=== PATIENT | female | born 1940 ===

== ENCOUNTER 2017-01-26 17:23 | Emergency (ER) | payer OTHER ==
[2017-01-26 17:38] VITALS: BP 137/78; PULSE 78; RESP 20; TEMP 97.7; O2SAT 98
--- NOTE | 2017-01-26 18:51 | ED PDOC ---
HPI: Abdomen Time Seen by Provider: 01/26/17 17:47 Chief Complaint (Nursing): Abdominal Pain Chief Complaint (Provider): abd pain History Per: Patient History/Exam Limitations: no limitations Onset/Duration Of Symptoms: Days (3) Current Symptoms Are (Timing): Still Present Severity: Moderate Location Of Pain/Discomfort: RUQ (radiating to back) Quality Of Discomfort: Aching Associated Symptoms: Nausea, Constipation (chronic). denies: Fever, Chills, Vomiting, Loss Of Appetite, Urinary Symptoms Exacerbating Factors: Food Alleviating Factors: None Past Medical History Reviewed: Historical Data, Nursing Documentation, Vital Signs Vital Signs: Last Vital Signs Temp 97.7 F 01/26/17 17:35 Pulse 78 01/26/17 17:35 Resp 20 01/26/17 17:35 BP 137/78 01/26/17 17:35 Pulse Ox 98 01/26/17 22:26 - Medical History PMH: Diabetes, HTN, Hypothyroidism - Surgical History Other surgeries: Hysterectomy - Family History Family History: States: Hypertension - Social History Current smoker - smoking cessation education provided: No Ex-Smoker (has not smoked in the last 12 months): No - Home Medications Home Medications: Ambulatory Orders Medication Instructions Recorded Polyethylene Glycol 3350 [Miralax] 17 gm PO DAILY PRN #1 bottle 05/21/16 Ibuprofen [Motrin Tab] 600 mg PO Q8 PRN #30 tab 01/26/17 Insulin Detemir [Levemir] 8 units SC ACHS 15 Days 01/26/17 - Allergies Allergies/Adverse Reactions: Allergies Allergy/AdvReac Type Severity Reaction Status Date / Time No Known Allergies Allergy Verified 01/26/17 17:35 Review of Systems ROS Statement: Except As Marked, All Systems Reviewed And Found Negative (and as per HPI) Respiratory: Positive for: Shortness of Breath. Negative for: Cough Gastrointestinal: Positive for: Nausea, Abdominal Pain, Constipation. Negative for: Vomiting, Diarrhea, Melena, Hematochezia, Hematemesis Genitourinary Female: Positive for: Frequency. Negative for: Dysuria Musculoskeletal: Positive for: Back Pain Physical Exam - Reviewed Nursing Documentation Reviewed: Yes Vital Signs Reviewed: Yes - Physical Exam Appears: Positive for: Non-toxic, In Acute Distress Head Exam: Positive for: ATRAUMATIC, NORMOCEPHALIC Skin: Positive for: Warm, Dry Eye Exam: Positive for: EOMI, PERRL ENT: Negative for: Pharyngeal Erythema, Tonsillar Exudate Neck: Positive for: Painless ROM, Supple Cardiovascular/Chest: Positive for: Regular Rate, Rhythm, Chest Non Tender. Negative for: Murmur Respiratory: Positive for: Normal Breath Sounds. Negative for: Wheezing, Respiratory Distress Gastrointestinal/Abdominal: Positive for: Bowel Sounds, Soft, Tenderness (RUQ). Negative for: Mass, Distended, Guarding, Rebound, Asicites Back: Positive for: Normal Inspection. Negative for: Vertebral Tenderness Extremity: Positive for: Normal ROM. Negative for: Pedal Edema Lymphatic: Negative for: Adenopathy Neurologic/Psych: Positive for: Alert. Negative for: Motor/Sensory Deficits - Laboratory Results Result Diagrams: 01/26/17 19:20 01/26/17 19:20 - ECG O2 Sat by Pulse Oximetry: 98 - Progress ED Course And Treament: EXAM: US Abdomen Complete CLINICAL HISTORY: 76 years old, female; Pain; Other: Ruq , rt flank pain; Additional info: Ruq pain r flank pain TECHNIQUE: Real-time ultrasound of the abdomen (complete) with image documentation. EXAM DATE/TIME: 01/26/2017 5:53 PM COMPARISON: There are no prior studies for comparison. FINDINGS: Liver: Liver is unremarkable. There is hepatopedal flow in the main portal vein. Gallbladder: Gallbladder is distended with no stones, sludge or wall thickening. Common bile duct: Common bile duct measures 4.8 mm in diameter Pancreas: Pancreas is partially obscured by bowel gas. The left portion is unremarkable. Kidneys: Kidneys are unremarkable. Corticomedullary differentiation is maintained. There is no pelvocaliectasis. Spleen: Spleen is unremarkable. Aorta: Visualized portions of the aorta and inferior vena cava are unremarkable. Inferior vena cava: See above. IMPRESSION: Slightly limited evaluation of the pancreas, study is otherwise unremarkable Patient was not tender over the gallbladder Thank you for allowing us to participate in the care of your patient. Dictated and Authenticated by: Jenniffer Ko MD 01/26/2017 9:45 PM Eastern Time ([place] & [place]) Re-evaluation Time: 21:00 Condition: Re-examined, Improved Disposition - Clinical Impression Clinical Impression: Dehydration, Abdominal pain Counseled Patient/Family Regarding: Studies Performed, Diagnosis, Need For Followup, Rx Given - Disposition Referrals: [facility] [Outside] - 01/28/17 Disposition: Routine/Home Disposition Time: 22:00 Condition: IMPROVED Prescriptions: Ibuprofen [Motrin Tab] 600 mg PO Q8 PRN #30 tab PRN Reason: Pain, Moderate (4-7) Insulin Detemir [Levemir] 8 units SC ACHS 15 Days Instructions: Dehydration (ED), Flank Pain (ED) Print Language: LUXEMBOURGISH
[2017-01-26 19:30] LABS: BASO # 0.1 K/uL (0.0-0.2); BASO % 1.2 % (0.0-2.0); EOS # 0.6 K/uL (0.0-0.7); HEMATOCRIT 36.8 % (34.0-47.0); LYMPH # 2.6 K/uL (1.0-4.3); LYMPH % 27.5 % (20.0-40.0); MEAN CORPUSCULAR HEMOGLOBIN 28.4 pg (27.0-31.0); MEAN CORPUSCULAR HGB CONC 33.8 g/dL (33.0-37.0); MEAN PLATELET VOLUME 8.4 fl (7.2-11.7); MONO # 0.8 K/uL (0.0-0.8); NEUT # 5.3 K/uL (1.8-7.0); NEUT % 56.3 % (50.0-75.0); RED CELL DISTRIBUTION WIDTH 12.7 % (11.5-14.5); WHITE BLOOD COUNT 9.5 K/uL (4.8-10.8)
[2017-01-26 19:42] LABS: ALB/GLOB RATIO 1.2 (1.0-2.1); ALKALINE PHOSPHATASE 110 U/L (38-126); ALT/SGPT 36 U/L (9-52); AST/SGOT 26 U/L (14-36); BILIRUBIN,TOTAL 0.5 mg/dl (0.2-1.3); BLOOD UREA NITROGEN 27 mg/dl (7-17); CALCIUM 9.6 mg/dL (8.4-10.2); CARBON DIOXIDE 26 mmol/L (22-30); CHLORIDE 92 mmol/L (98-107); GFR AFRICAN-AMERICAN > 60; GLUCOSE,RANDOM 195 mg/dL (65-105); LIPASE 181 U/L (23-300); SODIUM 129 mmol/l (132-148); TOTAL PROTEIN 8.6 G/DL (6.3-8.2)
[2017-01-26 20:20] LABS: PARTIAL THROMBOPLASTIN TIME 28.3 Seconds (25.6-37.1)
--- NOTE | 2017-01-26 21:46 | US ---
EXAM: US Abdomen Complete CLINICAL HISTORY: 76 years old, female; Pain; Other: Ruq , rt flank pain; Additional info: Ruq pain r flank pain TECHNIQUE: Real-time ultrasound of the abdomen (complete) with image documentation. EXAM DATE/TIME: 01/26/2017 5:53 PM COMPARISON: There are no prior studies for comparison. FINDINGS: Liver: Liver is unremarkable. There is hepatopedal flow in the main portal vein. Gallbladder: Gallbladder is distended with no stones, sludge or wall thickening. Common bile duct: Common bile duct measures 4.8 mm in diameter Pancreas: Pancreas is partially obscured by bowel gas. The left portion is unremarkable. Kidneys: Kidneys are unremarkable. Corticomedullary differentiation is maintained. There is no pelvocaliectasis. Spleen: Spleen is unremarkable. Aorta: Visualized portions of the aorta and inferior vena cava are unremarkable. Inferior vena cava: See above. IMPRESSION: Slightly limited evaluation of the pancreas, study is otherwise unremarkable Patient was not tender over the gallbladder
== END 2017-01-26 22:44 | disposition home or self-care (01) ==
LOC: H.ER 17:23
DX: E86.0 Dehydration (principal); R10.11 Right upper quadrant pain; R11.0 Nausea; E03.9 Hypothyroidism, unspecified; E11.9 Type 2 diabetes mellitus without complications; I10 Essential (primary) hypertension; Z79.4 Long term (current) use of insulin; Z87.891 Personal history of nicotine dependence

== ENCOUNTER 2017-05-13 20:22 | Emergency (ER) | payer SELFPAY ==
[2017-05-13 21:21] VITALS: TEMP 97
--- NOTE | 2017-05-13 21:52 | ED PDOC ---
HPI: Back Time Seen by Provider: 05/13/17 21:32 Chief Complaint (Nursing): Back Pain Chief Complaint (Provider): low back pain History Per: Patient, Family History/Exam Limitations: no limitations Onset/Duration Of Symptoms: Days (3) Current Symptoms Are (Timing): Still Present Quality Of Discomfort: "Pain" Exacerbating Factor(s): Turning, Movement Additional History Per: Patient Additional Complaint(s): 76 y/o female presents with low back pain x 3 days. Patient notes pain to have started after bending over to pick something up. Pain worse with movement. Denies numbness/weakness lower extremities, bowel/bladder incontinence, hematuria, dysuria. Pain improved with Tylenol. Past Medical History Reviewed: Historical Data, Nursing Documentation, Vital Signs Vital Signs: Last Vital Signs Temp 97.0 F L 05/13/17 21:18 Pulse 79 05/13/17 21:18 Resp 16 05/13/17 21:18 BP 158/69 H 05/13/17 21:18 Pulse Ox 99 05/13/17 21:18 - Medical History PMH: Diabetes, HTN, Hypothyroidism - Family History Family History: States: Hypertension - Home Medications Home Medications: Ambulatory Orders Medication Instructions Recorded Polyethylene Glycol 3350 [Miralax] 17 gm PO DAILY PRN #1 bottle 05/21/16 Ibuprofen [Motrin Tab] 600 mg PO Q8 PRN #30 tab 01/26/17 Insulin Detemir [Levemir] 8 units SC ACHS 15 Days 01/26/17 Lidocaine 5% [Lidoderm] 1 patch TOP DAILY #5 patch 05/14/17 Naproxen [Naprosyn Tab] 375 mg PO BID PRN #14 tab 05/14/17 - Allergies Allergies/Adverse Reactions: Allergies Allergy/AdvReac Type Severity Reaction Status Date / Time No Known Allergies Allergy Verified 05/13/17 21:17 Review of Systems ROS Statement: Except As Marked, All Systems Reviewed And Found Negative Musculoskeletal: Positive for: Back Pain Physical Exam - Reviewed Nursing Documentation Reviewed: Yes Vital Signs Reviewed: Yes - Physical Exam Appears: Positive for: Well, Non-toxic, No Acute Distress Head Exam: Positive for: ATRAUMATIC, NORMAL INSPECTION, NORMOCEPHALIC Skin: Positive for: Normal Color Eye Exam: Positive for: Normal appearance ENT: Positive for: Normal ENT Inspection Cardiovascular/Chest: Positive for: Regular Rate, Rhythm Respiratory: Positive for: Normal Breath Sounds Gastrointestinal/Abdominal: Positive for: Normal Exam Back: Positive for: Vertebral Tenderness (lspine), Muscle Spasm (b/l lspine paraspinals). Negative for: L CVA Tenderness, R CVA Tenderness Extremity: Positive for: Normal ROM Neurologic/Psych: Positive for: Alert, Oriented - Laboratory Results Result Diagrams: 05/14/17 00:10 05/14/17 00:10 Urine dip results: Positive for: Glucose. Negative for: Leukocyte Esterase, Blood, Nitrate, Ketones - ECG O2 Sat by Pulse Oximetry: 99 - Other Rad ls xray X-Ray: Viewed By Ga X-Ray Interpretation: no acute findings - Progress ED Course And Treament: xray, toradol Patient glucose >400; labs, IV fluids ordered On re-eval, patient states she is feeling better Glucose improved. Patient educated on findings, discharged with rx naproxen, lidoderm. Advised follow up PMD 2-3 days. Return to ED for worsening/concerning symptoms. Disposition - Clinical Impression Clinical Impression: Back pain, Hyperglycemia - Patient ED Disposition Is Patient to be Admitted: No Counseled Patient/Family Regarding: Studies Performed, Diagnosis, Need For Followup, Rx Given - Disposition Disposition: Routine/Home Disposition Time: 01:32 Condition: IMPROVED Prescriptions: Lidocaine 5% [Lidoderm] 1 patch TOP DAILY #5 patch Naproxen [Naprosyn Tab] 375 mg PO BID PRN #14 tab PRN Reason: Pain, Moderate (4-7) Instructions: Acute Low Back Pain (ED), Diabetic Hyperglycemia (ED) Forms: [email or web address] (Kyrgyz) Print Language: CAMBODIAN
[2017-05-13] MEDS ORDERED: Sodium Chloride 0.9% 1,000 ML IV STA (22:56)
[2017-05-14 00:16] LABS: BASO # 0.1 K/uL (0.0-0.2); EOS # 0.8 K/uL (0.0-0.7); EOS % 9.9 % (0.0-4.0); LYMPH # 2.1 K/uL (1.0-4.3); LYMPH % 24.6 % (20.0-40.0); MEAN PLATELET VOLUME 8.9 fl (7.2-11.7); MONO # 0.7 K/uL (0.0-0.8); MONO % 8.5 % (0.0-10.0); NEUT # 4.8 K/uL (1.8-7.0); RED CELL DISTRIBUTION WIDTH 13.4 % (11.5-14.5); WHITE BLOOD COUNT 8.5 K/uL (4.8-10.8)
[2017-05-14 00:23] LABS: BLOOD UREA NITROGEN 27 mg/dl (7-17); CALCIUM 9.6 mg/dL (8.4-10.2); CARBON DIOXIDE 24 mmol/L (22-30); CHLORIDE 98 mmol/L (98-107); GFR AFRICAN-AMERICAN > 60; GLUCOSE,RANDOM 367 mg/dL (65-105); SODIUM 132 mmol/l (132-148)
[2017-05-14 00:25] LABS: POTASSIUM 5.3 MMOL/L (3.6-5.0)
[2017-05-14 01:43] VITALS: BP 143/79; PULSE 78; RESP 18; O2SAT 98
--- NOTE | 2017-05-14 16:27 | RAD ---
PROCEDURE: Radiographs of the Lumbar Spine. HISTORY: injury, low back pain COMPARISON: No prior. FINDINGS: BONES: Normal alignment. No listhesis. No fracture. Diffuse osteopenia may indicate an element of osteoporosis. Clinically correlate. DISC SPACES: Advanced degenerate disease appreciated at L1-2, mild otherwise throughout the remainder of the lumbar spine. OTHER FINDINGS: None. 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 No acute fracture or spondylolisthesis appreciable. Diffuse osteopenia suggests osteoporosis.
== END 2017-05-14 01:45 | disposition home or self-care (01) ==
LOC: H.ER 20:22
DX: M54.5 Low back pain (principal); E11.65 Type 2 diabetes mellitus with hyperglycemia; E03.9 Hypothyroidism, unspecified; I10 Essential (primary) hypertension; Z79.4 Long term (current) use of insulin
CPT/HCPCS: 72100; 80048; 82948; 85025; 96372; 99283; J1885; J7040

== ENCOUNTER 2018-02-14 19:56 | Emergency (ER) | payer MEDICAID, OTHER ==
[2018-02-14 21:44] LABS: BASO # 0.1 K/uL (0.0-0.2); BASO % 0.9 % (0.0-2.0); EOS # 0.8 K/uL (0.0-0.7); EOS % 9.4 % (0.0-4.0); HEMOGLOBIN 12.6 g/dL (12.0-16.0); LYMPH # 2.4 K/uL (1.0-4.3); LYMPH % 27.3 % (20.0-40.0); MEAN CELL VOLUME 85.9 fl (81.0-99.0); MEAN CORPUSCULAR HEMOGLOBIN 29.6 pg (27.0-31.0); MEAN CORPUSCULAR HGB CONC 34.5 g/dL (33.0-37.0); MEAN PLATELET VOLUME 9.7 fl (7.2-11.7); MONO # 0.6 K/uL (0.0-0.8); MONO % 7.3 % (0.0-10.0); NEUT # 4.8 K/uL (1.8-7.0); NEUT % 55.1 % (50.0-75.0); NRBC % 0.1 % (0.0-0.0); RBC 4.25 Mil/uL (3.80-5.20); RED CELL DISTRIBUTION WIDTH 12.9 % (11.5-14.5); WHITE BLOOD COUNT 8.7 K/uL (4.8-10.8)
[2018-02-14 21:53] LABS: ALB/GLOB RATIO 1.2 (1.0-2.1); ALBUMIN 4.4 g/dL (3.5-5.0); ALT/SGPT 38 U/L (9-52); AST/SGOT 32 U/L (14-36); BLOOD UREA NITROGEN 23 mg/dl (7-17); GFR AFRICAN-AMERICAN > 60; GFR NON-AFRICAN AMERICAN 54
[2018-02-14 22:02] LABS: B-TYPE NATRIURETIC PEPTIDE 235 pg/ml (0-900)
[2018-02-14] MEDS ORDERED: Sodium Chloride 0.9% 1,000 ML IV STA ×2 (22:12)
[2018-02-14 22:44] LABS: SQUAMOUS EPITHIAL < 1 /hpf (0-5); URINE BILIRUBIN NEGATIVE (NEGATIVE); URINE BLOOD NEGATIVE (NEGATIVE); URINE CLARITY CLEAR (Clear); URINE COLOR COLORLESS (YELLOW); URINE GLUCOSE (UA) 50 mg/dL (Normal); URINE LEUKOCYTE ESTERASE NEG Leu/uL (Negative); URINE PROTEIN 30 mg/dL (NEGATIVE); URINE UROBILINOGEN 0.2-1.0 mg/dL (0.2-1.0)
--- NOTE | 2018-02-14 22:52 | ED PDOC ---
Lower Extremity Pain/Injury Time Seen by Provider: 02/14/18 20:44 Chief Complaint (Nursing): Lower Extremity Problem/Injury Chief Complaint (Provider): Lower Extremity Problem/Injury History Per: Patient History/Exam Limitations: no limitations Onset/Duration Of Symptoms: Days (x3) Current Symptoms Are (Timing): Still Present Additional Complaint(s): 77 year old female presents to the ED with complaints of bilateral foot and ankle swelling associated with a burning pain onset three days ago. Patient notes that her abdomen also feels swollen, as she states she has not had a normal bowel movement in three days as well. She states she tries to go frequently, but all that comes out are "small hard balls." Otherwise: (-) chest pain, (-) shortness of breath, (-) fever, (-) cough, (-) vomiting, (-) nausea, ( -) diarrhea, (-) urinary symptoms. PMD: none provided Past Medical History Reviewed: Historical Data, Nursing Documentation, Vital Signs Vital Signs: Last Vital Signs Temp 98.2 F 02/14/18 20:18 Pulse 74 02/14/18 20:18 Resp 19 02/14/18 20:18 BP 154/81 H 02/14/18 20:18 Pulse Ox 97 02/14/18 20:18 - Medical History PMH: Diabetes, HTN, Hypothyroidism - Surgical History Surgical History: No Surg Hx - Family History Family History: States: Hypertension - Social History Current smoker - smoking cessation education provided: No Alcohol: None Drugs: Denies - Home Medications Home Medications: Ambulatory Orders Medication Instructions Recorded Polyethylene Glycol 3350 [Miralax] 17 gm PO DAILY PRN #1 bottle 05/21/16 Ibuprofen [Motrin Tab] 600 mg PO Q8 PRN #30 tab 01/26/17 Insulin Detemir [Levemir] 8 units SC ACHS 15 Days vial 01/26/17 Lidocaine 5% [Lidoderm] 1 patch TOP DAILY #5 patch 05/14/17 Naproxen [Naprosyn Tab] 375 mg PO BID PRN #14 tab 05/14/17 Polyethylene Glycol 3350 [Miralax] 17 pow PO DAILY #20 each 02/15/18 - Allergies Allergies/Adverse Reactions: Allergies Allergy/AdvReac Type Severity Reaction Status Date / Time No Known Allergies Allergy Verified 05/13/17 21:17 Review of Systems ROS Statement: Except As Marked, All Systems Reviewed And Found Negative Constitutional: Negative for: Fever Cardiovascular: Negative for: Chest Pain Respiratory: Negative for: Cough, Shortness of Breath Gastrointestinal: Positive for: Constipation ("small hard balls" coming out), Other (abdomen feels swollen). Negative for: Nausea, Vomiting, Diarrhea Genitourinary Female: Negative for: Dysuria, Frequency, Incontinence Musculoskeletal: Positive for: Leg Pain (bilateral ankle and foot swelling associated with burning pain) Physical Exam - Reviewed Nursing Documentation Reviewed: Yes Vital Signs Reviewed: Yes - Physical Exam Comments: GENERAL APPEARANCE: Patient is awake, alert, oriented x 3, in no acute distress. Comfortable. SKIN: Warm, dry; (-) cyanosis. EYES: (-) conjunctival pallor. ENMT: Mucous membranes moist. NECK: (-) tenderness, (-) stiffness, (-) lymphadenopathy, (-) JVD. CHEST AND RESPIRATORY: (-) rash, (-) chest wall tenderness. Lungs: (-) rales , (-) rhonchi, (-) wheezes, (-) rub; breath sounds equal bilaterally. HEART AND CARDIOVASCULAR: (-) irregularity; (-) murmur, (-) gallop, (-) rub. ABDOMEN AND GI: Soft; (-) distention, (-) tenderness, (-) palpable pulsatile mass. RECTAL: (-) fecal impaction, (-) tenderness, (-) hemorrhoids, (-) guaiac. electrical assembly technician Prashanth was present as a etcher printed circuit boards for rectal exam. LOWER EXTREMITIES: (+) venous stasis dermatitis noted to bilaterally lower legs , (-) deformity otherwise; (+) 1+ pitting edema bilaterally, (-) calf tenderness , (+) distal pulses. NEURO AND PSYCH: Mental status as above. Cranial nerves grossly intact; strength symmetric. - Laboratory Results Result Diagrams: 02/14/18 21:40 02/14/18 21:40 - ECG O2 Sat by Pulse Oximetry: 97 (RA) Pulse Ox Interpretation: Normal Medical Decision Making Medical Decision Making: Initial Impression: CHF exacerbation, neuropathy, constipation Time: 21:18 Initial Plan: --EKG --BNP --CMP --CBC with differential --CXR --Obstructive series XR --Sodium chloride 0.9% 1000ml --Urine culture --Urinalysis --US Lower extremities bilateral AXR obstructive series (including 1 view chest) : NAD, +moderate stool/ constipation, as read by PA EKG : NSR at 62 bpm, (-) acute ST changes, as read by PA Labs reviewed : NS 123, BNP wnl, rest of the labs wnl. Considering normal BNP and CXR, US dopplers ordered to r/o DVT. NS bolus and maintenance fluids ordered. US doppler b/l LE : FINDINGS: Right deep veins: Unremarkable. No DVT in the right common femoral, femoral, proximal deep femoral or popliteal veins. The veins demonstrate normal color flow, are normally compressible, with normal phasic flow and/or augmentation response. Right superficial veins: Unremarkable. No thrombus in the visualized right great saphenous vein. Left deep veins: Unremarkable. No DVT in the left common femoral, femoral, proximal deep femoral or popliteal veins. The veins demonstrate normal color flow, are normally compressible, with normal phasic flow and/or augmentation response. Left superficial veins: Unremarkable. No thrombus in the visualized left great saphenous vein. Soft tissues: No acute findings. IMPRESSION: Normal bilateral lower extremity duplex venous ultrasound. Dictated and Authenticated by: Radha Gavin MD 02/14/2018 11:06 PM Eastern Time ([place] & [place]) 0130 After NS bolus VBG ordered. On re-evaluation, patient laying in bed comfortably in no acute distress, denies any headache, dizziness, CP or SOB. On exam, patient remains AAOx3, in no acute distress. Lab results reviewed and discussed with the patient and her daughter. Diagnostic results d/w the patient and daughter in great detail. Diagnosis of hyponatremia, constipation d/w the patient and daughter. Patient's daughter states that the patient does not take any medications for her consitpation. Advised that the patient will be kept for further observation in the ER and to continue giving maintenance fluids. VBG : shows normal lactate and NA 128, which is improving from initial CMP. 0400 Patient resting comfortably, has no other complaints. VSS. Patient and daughter feel comfortable going home. Advised to increase fiber intake. Based on history, exam and diagnostic results, plan will be for outpatient follow up. Patient instructed to follow-up with pmd in 1-2 days without fail. Rx : miralax for constipation. Return to the emergency room at any time for any new or worsening symptoms. Patient states she fully agrees with and understands discharge instructions. States that she agrees with the plan and disposition. Verbalized and repeated discharge instructions and plan. I have given the patient opportunity to ask any additional questions. Scribe Attestation: Documented by Hannah Ruelas, acting as a scribe for Haydee Lowery PA-C. Provider Scribe Attestation: All medical entries made by the Scribe were at my direction and personally dictated by me. I have reviewed the chart and agree that the record accurately reflects my personal performance of the history, physical exam, medical decision making, and the department course for this patient. I have also personally directed, reviewed, and agree with the discharge instructions and disposition. Disposition - Clinical Impression Clinical Impression: Leg edema, DM neuropathies, Hyponatremia, Constipation - Patient ED Disposition Is Patient to be Admitted: No Counseled Patient/Family Regarding: Studies Performed, Diagnosis, Need For Followup - Disposition Disposition: Routine/Home Disposition Time: 05:00 Condition: STABLE Additional Instructions: Thank you for letting us take care of you today. You were treated for leg edema , DM neuropathy, hyponatremia. The emergency medical care you received today was directed at your acute symptoms. Return to the Emergency Department if your symptoms worsen, do not improve, or if you have any other problems. Please contact your doctor in 2 days for re-evaluation and follow up. Bring any paperwork you were given at discharge with you along with any medications you are taking to your follow up visit. Our treatment cannot replace ongoing medical care by a primary care provider (PCP) outside of the emergency department. Thank you for allowing the [facility] team to be part of your care today. Prescriptions: Polyethylene Glycol 3350 [Miralax] 17 pow PO DAILY #20 each Instructions: Diabetic Neuropathy (DC), Hyponatremia, Swelling, Constipation in Adults Forms: [employer] (Kazakh) Print Language: BULGARIAN - PA / INVENTORY TRANSCRIBER / Resident Statement MD/DO has reviewed & agrees with the documentation as recorded.
[2018-02-15 01:37] LABS: VENOUS BLOOD GAS BASE EXCESS -0.2 mmol/L (0.0-2.0); VENOUS BLOOD GAS PCO2 50 mmHg (40-60); VENOUS BLOOD GAS PO2 20 mm/Hg (30-55); VENOUS BLOOD PH 7.33 (7.32-7.43)
[2018-02-15 05:48] VITALS: BP 142/76; PULSE 70; RESP 18; TEMP 98; O2SAT 99
--- NOTE | 2018-02-15 08:00 | RAD ---
PROCEDURE: Radiographs of the chest and abdomen (obstructive series) HISTORY: constipation COMPARISON: No prior. TECHNIQUE: AP radiograph of the chest, with upright and supine radiographs of the abdomen. FINDINGS: CHEST: Lungs: Clear. Cardiovascular: Normal size heart. No pulmonary vascular congestion. Pleura: No pleural fluid. No pneumothorax. Other findings: None. ABDOMEN AND PELVIS: Bowel: Unremarkable bowel gas pattern. No definite evidence of mechanical obstruction. Prominent amount retained fecal material is identified at the ascending colon. Free air: None. Bones: Unremarkable. Other findings: None. IMPRESSION: Unremarkable radiographs of chest and abdomen. No evidence of mechanical bowel obstruction.
--- NOTE | 2018-02-15 08:42 | CARD ---
APPROVED REPORT EKG Measurement Heart [id number] <Conclusion> Normal sinus rhythm Normal ECG
--- NOTE | 2018-02-15 14:46 | US ---
PROCEDURE: Bilateral lower extremity venous duplex Doppler. HISTORY: leg pain/edema, r/o dvt COMPARISON: None available. TECHNIQUE: Bilateral common and superficial femoral, popliteal and posterior tibial veins were evaluated. Flow was assessed with color Doppler, compressibility, assessment of phasic flow and augmentation response. FINDINGS: COMMON FEMORAL VEIN: Right CFV: Unremarkable. Left CFV: Unremarkable. SUPERFICIAL FEMORAL VEIN: Right SFV: Unremarkable. Left SFV: Unremarkable. POPLITEAL VEIN: Right Popliteal: Unremarkable. Left Popliteal: Unremarkable. POSTERIOR TIBIAL VEIN: Right PTV: Unremarkable. Left PTV: Unremarkable. OTHER FINDINGS: None. IMPRESSION: No ultrasound evidence of deep venous thrombosis bilateral lower extremities. Concordant preliminary report from [facility], 02/14/2018.
== END 2018-02-15 05:25 | disposition home or self-care (01) ==
LOC: H.ER 19:56
DX: R60.0 Localized edema (principal); E11.40 Type 2 diabetes mellitus with diabetic neuropathy, unspecified; E87.1 Hypo-osmolality and hyponatremia; E03.9 Hypothyroidism, unspecified; I11.0 Hypertensive heart disease with heart failure; I50.9 Heart failure, unspecified; Z79.4 Long term (current) use of insulin; K59.00 Constipation, unspecified
CPT/HCPCS: 74022; 80053; 81003; 82803; 83880; 85025; 87086; 93005; 93970; 99285; J7030; J7040

== ENCOUNTER 2018-03-13 13:36 | Emergency (ER) | payer MEDICAID, OTHER ==
[2018-03-13] MEDS ORDERED: Sodium Chloride 0.9% 1,000 ML IV STA (14:25)
[2018-03-13 14:56] LABS: BASO % 0.2 % (0.0-2.0); EOS # 0.3 K/uL (0.0-0.7); EOS % 2.4 % (0.0-4.0); HEMOGLOBIN 11.8 g/dL (12.0-16.0); LYMPH # 1.9 K/uL (1.0-4.3); LYMPH % 14.4 % (20.0-40.0); MEAN CELL VOLUME 85.1 fl (81.0-99.0); MEAN CORPUSCULAR HEMOGLOBIN 28.8 pg (27.0-31.0); MEAN CORPUSCULAR HGB CONC 33.8 g/dL (33.0-37.0); MEAN PLATELET VOLUME 9.1 fl (7.2-11.7); MONO # 0.8 K/uL (0.0-0.8); NEUT # 10.1 K/uL (1.8-7.0); NRBC % 0.1 % (0.0-0.0); RBC 4.1 Mil/uL (3.80-5.20); RED CELL DISTRIBUTION WIDTH 13.3 % (11.5-14.5); WHITE BLOOD COUNT 13.1 K/uL (4.8-10.8)
[2018-03-13 15:05] LABS: ALB/GLOB RATIO 1.3 (1.0-2.1); ALBUMIN 4.1 g/dL (3.5-5.0); CALCIUM 8.9 mg/dL (8.4-10.2); URINE BILIRUBIN NEGATIVE (NEGATIVE); URINE BLOOD NEGATIVE (NEGATIVE); URINE CLARITY CLOUDY (Clear); URINE COLOR YELLOW (YELLOW); URINE GLUCOSE (UA) >=500 mg/dL (Normal); URINE LEUKOCYTE ESTERASE NEG Leu/uL (Negative); URINE PROTEIN 100 mg/dL (NEGATIVE); URINE UROBILINOGEN 0.2-1.0 mg/dL (0.2-1.0)
--- NOTE | 2018-03-13 15:14 | ED PDOC ---
HPI: Abdomen Time Seen by Provider: 03/13/18 14:17 Chief Complaint (Nursing): Female Genitourinary Chief Complaint (Provider): flank pain, dysuria History Per: Patient, Picker History/Exam Limitations: no limitations Onset/Duration Of Symptoms: Days (4-5) Current Symptoms Are (Timing): Still Present Quality Of Discomfort: Sharp Associated Symptoms: Nausea, Urinary Symptoms Exacerbating Factors: None Alleviating Factors: None Last Bowel Movement: Today Additional Complaint(s): 77yo female c/o R flank pain associated with urinary discomfort and frequency, nausea, denies fever, syncope. Has felt ?chills but denies fever or syncope. Past Medical History Reviewed: Historical Data, Nursing Documentation, Vital Signs Vital Signs: Last Vital Signs Temp 97.8 F 03/13/18 18:25 Pulse 80 03/13/18 18:25 Resp 17 03/13/18 18:25 BP 129/68 03/13/18 18:25 Pulse Ox 100 03/13/18 18:25 - Medical History PMH: Diabetes, HTN, Hypothyroidism - Surgical History Surgical History: Hernia Repair - Family History Family History: States: Hypertension - Living Arrangements Living Arrangements: With Family - Social History Current smoker - smoking cessation education provided: No - Home Medications Home Medications: Ambulatory Orders Medication Instructions Recorded Polyethylene Glycol 3350 [Miralax] 17 gm PO DAILY PRN #1 bottle 05/21/16 Ibuprofen [Motrin Tab] 600 mg PO Q8 PRN #30 tab 01/26/17 Insulin Detemir [Levemir] 8 units SC ACHS 15 Days vial 01/26/17 Lidocaine 5% [Lidoderm] 1 patch TOP DAILY #5 patch 05/14/17 Naproxen [Naprosyn Tab] 375 mg PO BID PRN #14 tab 05/14/17 Polyethylene Glycol 3350 [Miralax] 17 pow PO DAILY #20 each 02/15/18 Sulfamethoxazole/Trimethoprim 1 tab PO BID #20 tab 03/13/18 [Bactrim DS 800 mg-160 mg] Tamsulosin [Flomax] 0.4 mg PO DAILY #5 cap 03/13/18 traMADol [Ultram] 50 mg PO Q8 #10 tab 03/13/18 - Allergies Allergies/Adverse Reactions: Allergies Allergy/AdvReac Type Severity Reaction Status Date / Time No Known Allergies Allergy Verified 05/13/17 21:17 Review of Systems ROS Statement: Except As Marked, All Systems Reviewed And Found Negative Constitutional: Negative for: Fever Cardiovascular: Negative for: Chest Pain Respiratory: Negative for: Cough Gastrointestinal: Positive for: Abdominal Pain Genitourinary Female: Positive for: Dysuria, Frequency. Negative for: Hematuria Musculoskeletal: Negative for: Neck Pain Skin: Negative for: Rash, Lesions, Jaundice Neurological: Negative for: Weakness, Numbness, Headache Psych: Negative for: Anxiety Physical Exam - Reviewed Nursing Documentation Reviewed: Yes Vital Signs Reviewed: Yes - Physical Exam Appears: Positive for: Well, Non-toxic, No Acute Distress Head Exam: Positive for: ATRAUMATIC, NORMAL INSPECTION, NORMOCEPHALIC Skin: Positive for: Normal Color, Warm, DRY Eye Exam: Positive for: EOMI, Normal appearance, PERRL ENT: Positive for: Normal ENT Inspection Neck: Positive for: Normal, Painless ROM Cardiovascular/Chest: Positive for: Regular Rate, Rhythm Respiratory: Positive for: CNT, Normal Breath Sounds Gastrointestinal/Abdominal: Positive for: Soft, Tenderness (R flank tenderness) Back: Positive for: R CVA Tenderness. Negative for: Muscle Spasm Extremity: Positive for: Normal ROM Neurologic/Psych: Positive for: Alert, Oriented - Laboratory Results Result Diagrams: 03/13/18 14:40 03/13/18 14:40 - ECG O2 Sat by Pulse Oximetry: 99 Medical Decision Making Medical Decision Making: workup for flank pain in elderly diabetic female initiated Gentle IVF initiated, check UA/UCx, bloodwork, CT abd pelv r/o pyelonephritis, renal colic vs other. 15:00 -Patient signed out to Dr. Barr pending CT and dispo Disposition - Clinical Impression Clinical Impression: Dysuria, Flank pain, Kidney stone - Patient ED Disposition Is Patient to be Admitted: No - Disposition Referrals: Aleksandr Lane MD [Staff Provider] - Disposition: Transfer of Care Disposition Time: 15:01 Condition: FAIR Prescriptions: Sulfamethoxazole/Trimethoprim [Bactrim DS 800 mg-160 mg] 1 tab PO BID #20 tab Tamsulosin [Flomax] 0.4 mg PO DAILY #5 cap traMADol [Ultram] 50 mg PO Q8 #10 tab Instructions: Kidney Stones in Adults Forms: [email or web address] (Fijian) Print Language: UPPER SORBIAN Patient Signed Over To: Andres Barr Handoff Comments: pending CT and dispo, reeval
--- NOTE | 2018-03-13 16:22 | CT ---
Date of service: 03/13/2018 PROCEDURE: CT Abdomen and Pelvis without intravenous contrast HISTORY: R flank pain COMPARISON: None. TECHNIQUE: Without contrast.. Contrast dose: 0 Radiation dose: Total exam DLP = 467.82 mGy-cm. This CT exam was performed using one or more of the following dose reduction techniques: Automated exposure control, adjustment of the mA and/or kV according to patient size, and/or use of iterative reconstruction technique. FINDINGS: LOWER THORAX: Unremarkable. LIVER: Unremarkable. No gross lesion or ductal dilatation. GALLBLADDER AND BILE DUCTS: Unremarkable. PANCREAS: Unremarkable. No gross lesion or ductal dilatation. SPLEEN: Unremarkable. ADRENALS: Unremarkable. No mass. KIDNEYS AND URETERS: Punctate nonobstructing mid right renal calculus. Multiple punctate left renal calculi as well as at least 1 curvilinear calcification likely vascular in origin. No hydronephrosis. No renal mass. No hydroureter or ureteral calculus. VASCULATURE: Unremarkable. No aortic aneurysm. BOWEL: Unremarkable. No obstruction. No gross mural thickening. APPENDIX: Unremarkable. Normal appendix. PERITONEUM: Unremarkable. No free fluid. No free air. LYMPH NODES: Unremarkable. No enlarged lymph nodes. BLADDER: Unremarkable. REPRODUCTIVE: Status post hysterectomy BONES: No acute fracture. OTHER FINDINGS: None. IMPRESSION: Bilateral punctate nonobstructing renal calculi. No additional abnormality.
[2018-03-13 17:49] VITALS: TEMP 97.8
--- NOTE | 2018-03-13 18:05 | ED PDOC ---
- Laboratory Results Result Diagrams: 03/13/18 14:40 03/13/18 14:40 - ECG O2 Sat by Pulse Oximetry: 100 Disposition - Clinical Impression Clinical Impression: Dysuria, Flank pain, Kidney stone - POA Present On Arrival: None - Disposition Referrals: Aleksandr Lane MD [Staff Provider] - Disposition: Routine/Home Disposition Time: 18:04 Condition: FAIR Prescriptions: Sulfamethoxazole/Trimethoprim [Bactrim DS 800 mg-160 mg] 1 tab PO BID #20 tab Tamsulosin [Flomax] 0.4 mg PO DAILY #5 cap traMADol [Ultram] 50 mg PO Q8 #10 tab Instructions: Kidney Stones in Adults Forms: [facility] (Palestinian) Print Language: SURINAMESE
[2018-03-13 18:27] VITALS: BP 129/68; PULSE 80; RESP 17
[2018-03-16 19:12] VITALS: O2SAT 99
== END 2018-03-13 18:10 | disposition home or self-care (01) ==
LOC: H.ER 13:36
DX: N20.0 Calculus of kidney (principal); R30.0 Dysuria; R10.9 Unspecified abdominal pain; E03.9 Hypothyroidism, unspecified; E11.9 Type 2 diabetes mellitus without complications; I10 Essential (primary) hypertension; Z79.4 Long term (current) use of insulin
CPT/HCPCS: 74176; 80053; 81003; 85025; 87086; 87181; 99284; J1885; J7030

== ENCOUNTER 2018-12-29 18:38 | Emergency (ER) | payer MEDICAID, OTHER ==
[2018-12-29 18:53] VITALS: RESP 18; O2SAT 99
[2018-12-29 18:54] VITALS: BMI 26.0
--- NOTE | 2018-12-29 20:10 | ED PDOC ---
Lower Extremity Pain/Injury Time Seen by Provider: 12/29/18 19:18 Chief Complaint (Nursing): Lower Extremity Problem/Injury Chief Complaint (Provider): Ulcers on feet History Per: Patient, Family (daughter), [employer] (WAYLON [id number]) Additional Complaint(s): 78yo with history of diabetes comes to ER reporting pain to bilateral feet due to ulcers on her great toes. She states the ulcers have been present for 6 days, increasingly painful and have caused pain with walking. Patient also reports secondary complaint of chronic knee pain, which has been ongoing x 2 months. No medications taken for symptoms. Patient has an appointment with a sanitary engineering teacher in 2 days. Per daughter, patient is compliant with medication and checks her blood sugar 2x daily; no recent drastic fluctuations. Past Medical History Reviewed: Historical Data, Nursing Documentation, Vital Signs Vital Signs: Last Vital Signs Temp 98.3 F 12/29/18 18:52 Pulse 92 H 12/29/18 18:52 Resp 18 12/29/18 18:52 BP 160/79 H 12/29/18 18:52 Pulse Ox 99 12/29/18 18:52 Primary Care Provider: FAMILY PROVIDER,NO - Medical History PMH: Diabetes, HTN, Hypothyroidism - Surgical History Surgical History: Hernia Repair - Family History Family History: States: Hypertension - Home Medications Home Medications: Ambulatory Orders Medication Instructions Recorded Polyethylene Glycol 3350 [Miralax] 17 gm PO DAILY PRN #1 bottle 05/21/16 Ibuprofen [Motrin Tab] 600 mg PO Q8 PRN #30 tab 01/26/17 Insulin Detemir [Levemir] 8 units SC ACHS 15 Days vial 01/26/17 Lidocaine 5% [Lidoderm] 1 patch TOP DAILY #5 patch 05/14/17 Naproxen [Naprosyn Tab] 375 mg PO BID PRN #14 tab 05/14/17 Polyethylene Glycol 3350 [Miralax] 17 pow PO DAILY #20 each 02/15/18 Sulfamethoxazole/Trimethoprim 1 tab PO BID #20 tab 03/13/18 [Bactrim DS 800 mg-160 mg] Tamsulosin [Flomax] 0.4 mg PO DAILY #5 cap 03/13/18 traMADol [Ultram] 50 mg PO Q8 #10 tab 03/13/18 Cephalexin [Keflex] 500 mg PO BID #14 capsule 12/29/18 - Allergies Allergies/Adverse Reactions: Allergies Allergy/AdvReac Type Severity Reaction Status Date / Time No Known Allergies Allergy Verified 12/29/18 18:55 Review of Systems ROS Statement: Except As Marked, All Systems Reviewed And Found Negative Constitutional: Negative for: Fever, Chills Musculoskeletal: Positive for: Foot Pain (bilateral great toe), Other (bilateral knee pain) Physical Exam - Reviewed Nursing Documentation Reviewed: Yes Vital Signs Reviewed: Yes - Physical Exam Appears: Positive for: Non-toxic, Uncomfortable Head Exam: Positive for: ATRAUMATIC, NORMAL INSPECTION, NORMOCEPHALIC Skin: Positive for: Normal Color Eye Exam: Positive for: Normal appearance Neck: Positive for: Supple Cardiovascular/Chest: Positive for: Regular Rate, Rhythm Respiratory: Positive for: Normal Breath Sounds. Negative for: Respiratory Dist ress Back: Positive for: Normal Inspection Extremity: Positive for: Other (Superical diabetic ulcers noted to medial aspect of bilateral great toes) Neurological/Psych: Positive for: Awake, Alert, Normal Tone - Laboratory Results Result Diagrams: 12/29/18 21:57 12/29/18 21:57 - ECG O2 Sat by Pulse Oximetry: 99 (RA) Pulse Ox Interpretation: Normal Medical Decision Making Medical Decision Making: Impression: Chronic knee pain, diabetic ulcers Plan: -- Accucheck Elevated accucheck. Labs ordered. IV fluids given. Pain medications. Antibiotics at home. F/u with previous scheduled podiatry appointment. Scribe Attestation: Documented by Soniya Arvizu, acting as a scribe for LUANN Soto Provider Scribe Attestation: All medical record entries made by the Scribe were at my direction and personally dictated by me. I have reviewed the chart and agree that the record accurately reflects my personal performance of the history, physical exam, medical decision making, and the department course for this patient. I have also personally directed, reviewed, and agree with the discharge instructions and disposition. Disposition - Clinical Impression Clinical Impression: Diabetic ulcer of toe, Hyperglycemia - Patient ED Disposition Is Patient to be Admitted: No Counseled Patient/Family Regarding: Diagnosis, Need For Followup, Rx Given - Disposition Referrals: Podiatry Clinic [Outside] Disposition: Routine/Home Disposition Time: 23:10 Condition: GOOD Prescriptions: Cephalexin [Keflex] 500 mg PO BID #14 capsule Instructions: Hyperglycemia, Adult Forms: [facility] (Tristanian)
[2018-12-29 22:10] LABS: ALB/GLOB RATIO 1.3 (1.0-2.1); ALBUMIN 4.3 g/dL (3.5-5.0); ALT/SGPT 29 U/L (9-52); AST/SGOT 32 U/L (14-36); BLOOD UREA NITROGEN 33 mg/dl (7-17); CALCIUM 9.7 mg/dL (8.4-10.2); GFR NON-AFRICAN AMERICAN 53
[2018-12-29 22:13] LABS: BASO # 0.1 K/uL (0.0-0.2); BASO % 1.3 % (0.0-2.0); EOS % 10.8 % (0.0-4.0); HEMOGLOBIN 11.5 g/dL (12.0-16.0); LYMPH # 1.9 K/uL (1.0-4.3); LYMPH % 21.5 % (20.0-40.0); MEAN CELL VOLUME 88.6 fl (81.0-99.0); MEAN CORPUSCULAR HEMOGLOBIN 29.6 pg (27.0-31.0); MEAN CORPUSCULAR HGB CONC 33.4 g/dL (33.0-37.0); MEAN PLATELET VOLUME 8.1 fl (7.2-11.7); MONO # 0.6 K/uL (0.0-0.8); MONO % 6.1 % (0.0-10.0); NEUT # 5.5 K/uL (1.8-7.0); NEUT % 60.3 % (50.0-75.0); RBC 3.88 Mil/uL (3.80-5.20); WHITE BLOOD COUNT 9.1 K/uL (4.8-10.8)
[2018-12-29] MEDS ORDERED: Sodium Chloride 0.9% 1,000 ML IV STA (23:09)
[2018-12-29 23:40] VITALS: BP 148/78; PULSE 74; TEMP 98.2
== END 2018-12-29 23:15 | disposition home or self-care (01) ==
LOC: H.ER 18:38
DX: E11.621 Type 2 diabetes mellitus with foot ulcer (principal); L97.509 Non-pressure chronic ulcer of other part of unspecified foot with unspecified severity; E11.622 Type 2 diabetes mellitus with other skin ulcer; E11.65 Type 2 diabetes mellitus with hyperglycemia; I10 Essential (primary) hypertension; Z79.4 Long term (current) use of insulin; G89.29 Other chronic pain; E03.9 Hypothyroidism, unspecified
CPT/HCPCS: 80053; 82948; 85025; 96360; 99283; J7030